=== PATIENT | female | born 1995 | race Caucasian/White ===

== ENCOUNTER 2018-01-12 21:22 | Inpatient (IN) ==
[2018-01-12] MEDS ORDERED: ONDANSETRON 4 MG/2 ML VIAL IV PRN (21:37)
[2018-01-12] MEDS ORDERED: ePHEDrine 50 MG/ML AMP IV PRN (21:39)
[2018-01-12] MEDS ORDERED: LACTATED RINGERS 250 ML IV PRN (21:39)
[2018-01-12] MEDS ORDERED: diphenhydrAMINE 50 MG/1 ML VIAL IV PRN ×2 (21:39)
[2018-01-12] MEDS ORDERED: hydrOXYzine HCL 25 MG/1 ML VIAL IM PRN (21:39)
[2018-01-12] MEDS ORDERED: PROMETHAZINE 25 MG/1 ML VIAL IM ONE (21:39)
[2018-01-12] MEDS ORDERED: ONDANSETRON 4 MG/2 ML VIAL IV ONE (21:39)
[2018-01-12] MEDS ORDERED: MEPERIDINE 50 MG/1 ML VIAL IV ONE (21:40)
[2018-01-12] MEDS ORDERED: CITRIC ACID/SODIUM CITRATE 30 ML UDCUP PO ONE (21:40)
[2018-01-12] MEDS ORDERED: FAMOTIDINE 20 MG/2 ML VIAL IV ONE (21:40)
[2018-01-12] MEDS ORDERED: MEPERIDINE 50 MG/1 ML VIAL ONE (21:43)
[2018-01-12] MEDS ORDERED: LIDOCAINE 1% 50 ML VIAL ONE (21:47)
[2018-01-12] MEDS ORDERED: OXYTOCIN/LR 20 UNIT/1,000 ML BAG IV ONE (21:47)
[2018-01-12 21:48] LABS: Basophils % 0.2 % (0.0-0.8); Eosinophils % 0.1 % (0.00-10.9); Hemoglobin 11.5 GM/DL (12.0-16.0); Immature Granulocytes % 0.3 %; Immature Granulocytes Absolute 0.03 #; Lymphocytes # 1.5 10*3/uL (1.4-4.0); Lymphocytes % 12.8 % (21.3-54.2); Mean Corpuscular HGB Conc 32.9 GM/DL (32-36); Mean Corpuscular Hemoglobin 30 PG (27-34); Mean Corpuscular Volume 89.7 FL (87-102); Mean Platelet Volume 11.2 FL (9.6-12.0); Monocytes # 0.7 10*3/uL (0.11-0.8); Monocytes % 6.1 % (1.7-12.7); Neutrophils # 9.2 10*3/uL (1.4-7.4); Neutrophils % 80.5 % (38.7-73.9); Platelet Count 240 T/CUMM (130-400); Red Cell Distribution Width 13.5 % (9.3-17.3); White Blood Count 11.5 T/CUMM (4-12)
[2018-01-12] MEDS ORDERED: fentaNYL 2 MCG/ROPIV 0.2% EPID 150 ML EPIDURAL SCH (22:00)
[2018-01-12] MEDS ORDERED: LACTATED RINGERS 1,000 ML IV SCH ×2 (22:00)
[2018-01-13] MEDS ORDERED: RHO(D) IMMUNE GLOBULIN 300 MCG SYRINGE IM ONE (00:52)
[2018-01-13] MEDS ORDERED: HYDROCORTISONE 2.5% RECTAL CREAM 30 GM TUBE TOP PRN (00:52)
[2018-01-13] MEDS ORDERED: WITCH HAZEL PADS 100/JAR TOP PRN (00:52)
[2018-01-13] MEDS ORDERED: BISACODYL 10 MG SUPP RECTAL PRN (00:52)
[2018-01-13] MEDS ORDERED: OXYTOCIN/LR 20 UNIT/1,000 ML BAG IV ONE (00:52)
[2018-01-13] MEDS ORDERED: ACETAMINOPHEN 325 MG TABLET PO PRN (00:52)
[2018-01-13] MEDS ORDERED: LANOLIN 50% CREAM 0.3 OZ TUBE TOP PRN (00:52)
[2018-01-13] MEDS ORDERED: ONDANSETRON 4 MG/2 ML VIAL IV PRN (00:52)
[2018-01-13] MEDS ORDERED: BENZOCAINE 20%/MENTHOL 0.5% SPRAY 56 GM CAN TOP PRN (00:52)
[2018-01-13] MEDS ORDERED: MEASLES/MUMPS/RUBELLA VACCINE 0.5 ML VIAL SUBCUT ONE (00:52)
[2018-01-13] MEDS ORDERED: oxyCODONE/ACETAMINOPHEN 5-325 MG TABLET PO PRN ×2 (00:52→20:33)
[2018-01-13] MEDS ORDERED: DIPH/TET/ACEL PERT BOOSTER VACCINE 0.5 ML VIAL IM ONE (01:00)
[2018-01-13] MEDS: IBUPROFEN 800 MG TABLET PO PRN ×3 (06:36→21:04)
[2018-01-13 07:00] LABS: Basophils % 0.2 % (0.0-0.8); Hematocrit 26.4 VOL% (35.7-47.0); Immature Granulocytes % 0.5 %; Immature Granulocytes Absolute 0.07 #; Lymphocytes # 1.6 10*3/uL (1.4-4.0); Mean Corpuscular HGB Conc 33.3 GM/DL (32-36); Mean Corpuscular Hemoglobin 30 PG (27-34); Mean Corpuscular Volume 88.9 FL (87-102); Mean Platelet Volume 11.5 FL (9.6-12.0); Monocytes # 0.8 10*3/uL (0.11-0.8); Monocytes % 6.3 % (1.7-12.7); Neutrophils # 10.6 10*3/uL (1.4-7.4); Red Cell Distribution Width 13.5 % (9.3-17.3); White Blood Count 13.1 T/CUMM (4-12)
[2018-01-13 07:05] LABS: Hemoglobin 8.8 GM/DL (12.0-16.0); Platelet Count 178 T/CUMM (130-400); Red Blood Count 2.97 MC/CUMM (3.8-5.5)
[2018-01-13] MEDS: DOCUSATE SODIUM 100 MG CAPSULE PO SCH ×2 (09:26→20:57)
[2018-01-13] MEDS: oxyCODONE/ACETAMINOPHEN 5-325 MG TABLET PO PRN ×3 (09:27→20:57)
[2018-01-14] MEDS: DOCUSATE SODIUM 100 MG CAPSULE PO SCH ×2 (08:27→20:12)
[2018-01-14] MEDS: oxyCODONE/ACETAMINOPHEN 5-325 MG TABLET PO PRN ×3 (13:59→22:31)
[2018-01-14] MEDS: IBUPROFEN 800 MG TABLET PO PRN (20:11)
[2018-01-15] MEDS: oxyCODONE/ACETAMINOPHEN 5-325 MG TABLET PO PRN ×2 (07:30→12:41)
[2018-01-15] MEDS: DOCUSATE SODIUM 100 MG CAPSULE PO SCH (07:30)
[2018-01-15 08:35] VITALS: BP 91/54
== END 2018-01-15 13:30 | disposition home or self-care (01) | DRG 775 ==
LOC: N.LDOUT 21:22 → N.LD 21:23 → N.OB 01-13 04:08
PROVIDERS: ADMIT Specialist; ATTEND Specialist